=== PATIENT | female | born 1950 | race Caucasian/White ===

== ENCOUNTER → 2016-08-10 | Outpatient (CLI) | payer OTHER ==
[~2016-08-10] MED LIST: ADVIL200 MG PO; ASPIRIN EC81 MG PO; CENTRUM SILVER1 TAB PO; EFFEXOR XR75 MG PO; LASIX20 M1 PO; LIPITOR20 M1 PO; NASONEX NASAL S17 GM NOSE; NEXIUM40 MG PO; TOPROL XL25 MG PO; TYLENOL325 MG PO; VITAMIN D-32000 UNI1 PO
[2016-08-10 17:28] LABS: ALBUMIN 3.3 gm/dL (3.5-5.0); ANION GAP 11.9 (10.0-19.0); BLOOD UREA NITROGEN 23 mg/dL (6-24); CALCIUM 8.3 mg/dL (8.5-10.5); CHLORIDE 108 mMol/L (96-110); CO2 27 mMol/L (22-32); CREATININE 0.8 mg/dL (0.5-1.1); ESTIMATED GFR (MDRD EQUATION) > 60; PHOSPHORUS 2.1 mg/dL (2.5-4.9); POTASSIUM 3.9 mMol/L (3.7-5.1); SODIUM 143 mMol/L (135-145)
== END | disposition disaster alternative care site (69) ==
LOC: LCNC 17:16
PROVIDERS: Internal Medicine Interventional Cardiology
DX: R06.02 Shortness of breath (principal)

== ENCOUNTER → 2016-08-13 | Outpatient (CLI) | payer OTHER ==
[2016-08-13 15:38] LABS: BASOPHIL % 0.7 %; EOSINOPHIL # 0.2 K/uL (0.0-0.5); EOSINOPHIL % 3.8 %; HEMATOCRIT 37.1 % (33.0-46.0); HEMOGLOBIN 12.2 g/dL (10.0-15.0); IMMATURE GRANULOCYTE % 0.3 %; LYMPHOCYTE # 2.7 K/uL (0.8-4.0); LYMPHOCYTE % 44.7 %; MCHC 32.9 gm/dL (32.0-36.5); MCV 91.4 fl (83.0-98.0); MONOCYTE # 0.4 K/uL (0.0-1.0); MONOCYTE % 6.7 %; MPV 9.1 fl (9.4-12.4); NEUTROPHIL # (ANC) 2.6 K/uL (1.8-7.8); NEUTROPHIL % 43.8 %; NRBC % 0 /100WBC (0-0.00); PLATELET COUNT 270 K/uL (150-450); RBC 4.06 M/uL (3.50-5.50); RDW-CV 13.2 % (11.9-14.6)
== END | disposition disaster alternative care site (69) ==
LOC: LCNC 15:34
PROVIDERS: Internal Medicine Interventional Cardiology
DX: R06.02 Shortness of breath (principal)

== ENCOUNTER 2016-08-20 06:06 | Outpatient (CLI) | payer OTHER, MEDICARE ==
[~2016-08-20] VITALS: Ht 162.6 cm; Wt 89.1 kg
--- NOTE | ~2016-08-20 | CATH ---
Cardiac Diagnostic Report Demographics Patient Name GYPSY GRACIA Gender Female A Date of 1950 Age 66 year(s) Patient Number [id number] Date of Study 08/20/2016 Visit Number [id number] Room Number G63[address] [place] [id number] Ht 168 cm Wt 89.1 kg Referring Heena Christine MD Primary Physician Physician Performing Heena Christine MD Secondary Physician Physician Diagnostic Heena Christine MD Assisting Physician Physician Interventional Physician Ship Captain Physician Findings and Conclusions Diagnostic Findings and Conclusion nonobstructive CAD normal LV function Elevated LVEDP consistent with diastolic dysfunction Diagnostic Recommendations medical therapy Routine post perclose care Procedure Description The patient was brought to the diagnostic cardiac catheterization-EP laboratory in the fasting, non-sedated state. Informed consent was obtained in the written and verbal form after the risks and benefits were explained. The patient had no further questions and agreed to proceed. The planned puncture-incision site(s) were shaved and prepped with ChloraPrep and draped in the usual sterile manner. Conscious sedation, supplemental oxygen, and pain control medications were delivered by a registered nurse under physician guidance. Surface ECG rhythm, blood pressure measurement, and pulse oximetry were monitored throughout the procedure. Arterial access. The access site was infiltrated with lidocaine. The vessel was entered with the Seldinger technique. A sheath was advanced into the vessel and used for catheter placement. Venous access. The access site was infiltrated with lidocaine. The vessel was entered with the Seldinger technique. A sheath was advanced into the vessel and used for catheter placement. Selective left coronary angiography. A catheter was advanced into the left coronary vessel ostium under Fluoroscopic guidance. Contrast was injected by hand. Images were obtained in multiple projections. Selective right coronary angiography. A catheter was advanced into the right coronary vessel ostium under fluoroscopic guidance. Contrast was injected by hand. Images were obtained in multiple projections. Left heart catheterization with ventriculography. A catheter was advanced across the aortic valve to the left ventricle under fluoroscopic guidance. Resting hemodynamics were obtained. With the catheter at the left ventricular apex, contrast was injected. Images were obtained in RUGGIERO projections. Post-ventriculography LV pressure was obtained. The catheter was gradually withdrawn into the aorta with continuous pressure recording. Right heart catheterization. A Wentworth Shelly catheter was successfully advanced to the right atrium, right ventricle, pulmonary artery, and pulmonary artery wedge position under fluoroscopic guidance. Resting hemodynamics were obtained. Measurements included pressures, arterial and venous oxygen saturation samples, and cardiac output. The Wentworth was removed without difficulty. Arterial artery hemostasis was achieved. The patient was transferred to a regular nursing floor via cart accompanied by a nurse. The patient left the laboratory in stable condition. Diagnostic Cath Status: Elective Procedure Procedure Type Diagnostic procedure:Ventriculogram:, Left, Angiography:, Right and Left Heart Cath, Coronary Angios Indications: Fatigue and Shortness of breath w/exertion. The procedure was explained in detail to the patient. Risks, complications and alternative treatments were reviewed. Written consent was obtained. Medications Reviewed with Patient prior to Procedure. Angiographic Findings Dominance: Mixed Cardiac Arteries and Lesion Findings LMCA: Normal (0% Stenosis).medium wnl LAD: Normal (0% Stenosis).medium wnl Diag 1 small ok LCx: Normal (0% Stenosis).large codominant OM1 small ok RCA: Normal (0% Stenosis).medium wnl PDA small ok Procedure Data Procedure Date Date: 08/20/2016Start: 08:00 AMEnd: 08:49 AM Entry Locations - Retrograde Percutaneous access was performed through the Right Femoral artery (Primary location). A 6 Fr sheath was inserted. Hemostasis was successfully obtained using Perclose ProGlide (Minaya). Closure Comments: perclose deployed by ashlie . - Antegrade Percutaneous access was performed through the Right Femoral vein. A 7 Fr sheath was inserted. Closure Comments: pressure held by ashlie. Procedure Medications Order and Administration + + +-------+------+ !Time !Medication !Dosage !Route ! + + +-------+------+ !08/20/2016 07:53 AM !Fentanyl !25 mcg !I.V. ! + + +-------+------+ !08/20/2016 08:33 AM !Fentanyl !25 mcg !I.V. ! + + +-------+------+ Devices Used - A6 Fr. BS Angled Pigtail Diag. Catheterwas used for:LV Pressures. - A6 Fr. BS JL 4 Diag. Catheterwas used for:Left coronary angiography. - A6 Fr. BS JR 4 Diag. Catheterwas used for:Right coronary angiography. Contrast Material - Isovue 43343 ml Fluoroscopy Time: Diagnostic: 7:06 minutes. Total: 7:06 minutes. Fluoroscopy Dose: Diagnostic: 505 mGy. Total: 505 mGy. Estimated Blood Loss: 4 ml. Medical History Allergies - Other:(bactrim, trimethoprim). Risk Factors The patient risk factors include:physical activity, treated hypertension, family history of premature CAD, last creatinine: 0.8 mg/dl and creatinine clearance: 95.98 ml/min. Admission Data Admission Date: 08/20/2016 Admission Time: 06:06 AM Admit Source: Other Insurance Payors: Private health insurance. Admission Medications + +------+------+ + + + + !Medication !Dosage!Times !Last !Last !Administered !Comments ! ! ! !Per !Delivery !Delivery ! ! ! ! ! !Day !Date !Time ! ! ! + +------+------+ + + + + !Beta ! ! ! ! ! ! ! !Anastasia ! ! ! ! ! ! ! !(any) ! ! ! ! ! ! ! + +------+------+ + + + + !Aspirin ! ! ! ! ! ! ! !(any) ! ! ! ! ! ! ! + +------+------+ + + + + !Statin ! ! ! ! ! ! ! !(any) ! ! ! ! ! ! ! + +------+------+ + + + + Clinical Evaluation Leading to Procedure - The patient's CAD presentation was assessed as: Unstable angina. - The patient's anginal syndrome during the past two weeks was assessed as: Class II according to the [place] Cardiovascular [employer] Classification System (CCS). Anti-anginal medications were prescribed during the past two weeks. The medications are: Beta Blockers and Other. - The patient has been in a state of heart failure within the past two weeks. - The patient's heart failure status was assessed as NYHA Class I. VA Ventriculography Findings normal LV systolic function EF 55-60% elevated LVEDP LV function assessed as:Normal. Ejection Fraction - Method: LV gram. EF%: 55. - 10/20/2015 - Method: Radionucleotide. EF%: 65. LVA Segment Contractility 1 - Normal 3 - Mild 5 - Severe 7 - Dyskinesis hypokinesis hypokinesis 2 - 4 - Moderate 6 - Akinesis 8 - Aneurysm Hypokinesis hypokinesis Hemodynamics Condition: Rest O2 Consumption: Estimated: 183.59Heart Rate: 68 bpm Oxygen Saturation +--------+-----+----+ +----+ + !Location!pCO2 !pO2 !% Saturation !Hgb !O2 Content ! +--------+-----+----+ +----+ + !FA ! ! !97 !12.2! ! +--------+-----+----+ +----+ + !PCW ! ! !77.6 !12.2! ! +--------+-----+----+ +----+ + !SVC ! ! !65.1 !12.2! ! +--------+-----+----+ +----+ + !RA ! ! !67.2 !12.2! ! +--------+-----+----+ +----+ + !IVC ! ! !81.2 !12.2! ! +--------+-----+----+ +----+ + Pressures (mmHg) +-----+ + !Site !Pressure ! +-----+ + !RA !11/9 (8) ! +-----+ + !RV !38/0 ,8 ! +-----+ + !PCW ! (10) ! +-----+ + !PA !/ (18) ! +-----+ + !LV !139/2 ,17 ! +-----+ + !PCW ! (14) ! +-----+ + !LV !124/1 ,15 ! +-----+ + !PCW ! (13) ! +-----+ + !LV !140/2 ,17 ! +-----+ + !LV !146/2 ,18 ! +-----+ + !LV !134/3 ,21 ! +-----+ + !LV !134/4 ,20 ! +-----+ + !LV !133/3 ,19 ! +-----+ + !AO !133/63 (94) ! +-----+ + !LV !134/3 ,20 ! +-----+ + !AO !135/69 (96) ! +-----+ + Cardiac Output + + +------+ !Time !Cardiac Output (l/min) !Use ! + + +------+ !08/20/2016 08:28 AM !4.45 !True ! + + +------+ !08/20/2016 08:28 AM !4.45 !True ! + + +------+ !08/20/2016 08:29 AM !3.46 !False ! + + +------+ !08/20/2016 08:29 AM !4.52 !True ! + + +------+ !08/20/2016 08:30 AM !3.65 !True ! + + +------+ Cardiac Output +-------+ + + + !Method !CO (l/min) !CI (l/min/m2) !SV (ml) ! +-------+ + + + !Millie !3.71 !1.9 !54.35 ! +-------+ + + + !Thermal!4.2675 !2.1 !55.6 ! +-------+ + + + Valve Gradients and Areas + +--------+--------+--------+---------+ + + !Valve !Peak !Mean !Area !Index !Flow !Source ! + +--------+--------+--------+---------+ + + !Aortic !1 !0 ! ! !178.19 !Millie ! + +--------+--------+--------+---------+ + + !Aortic !1 !0 ! ! !204.97 !Thermal ! + +--------+--------+--------+---------+ + + Shunts Oxygen Values O2 Capacity 165.92 O2 Consumption 183.59 Flows (l/min) Qs 3.97 Qe 13.06 Vascular Resistance (dynes x sec x cm-5) + +-----+-----+----+----+---------+-------+ !CO method !TSVR !SVR !TPVR!PVR !TPVR/TSVR!PVR/SVR! + +-----+-----+----+----+---------+-------+ !Millie !25.77!23.74!4.72!1.26!0.18 !0.05 ! + +-----+-----+----+----+---------+-------+ !Thermal !22.41!20.64!4.1 !1.09!0.18 !0.05 ! + +-----+-----+----+----+---------+-------+ !Qp or Qs !24.09!22.18! ! ! ! ! + +-----+-----+----+----+---------+-------+ Discharge Data Discharge Date: 08/20/2016 Hospital Status: Outpatient Signatures dtt: Emmett Naik (cardio) dtd: 08/20/16 0800 Physician Self Edit
[~2016-08-20 06:06] MED LIST changes: -LASIX20 M1 PO
[2016-08-20] MEDS ORDERED: TOPROL XL25 MG PO (11:55)
[2016-08-20] MEDS ORDERED: LASIX20 M1 PO (11:55)
== END 2016-08-20 12:05 | disposition disaster alternative care site (69) ==
LOC: GPCU 06:06 → GCAT 06:06 → GPCU 06:07 → GPOC 08:00 → GCAT 12:05
PROC: B2151ZZ Fluoroscopy of Left Heart using Low Osmolar Contrast (ICD-10-PCS; principal; 2016-08-20)
PROC: 4A023N8 Measurement of Cardiac Sampling and Pressure, Bilateral, Percutaneous Approach (ICD-10-PCS; principal; 2016-08-20)
PROC: B2111ZZ Fluoroscopy of Multiple Coronary Arteries using Low Osmolar Contrast (ICD-10-PCS; principal; 2016-08-20)
DX: R06.02 Shortness of breath (principal); I49.3 Ventricular premature depolarization; M54.9 Dorsalgia, unspecified; G89.29 Other chronic pain; E78.5 Hyperlipidemia, unspecified; I10 Essential (primary) hypertension; R53.83 Other fatigue; E66.9 Obesity, unspecified; Z68.33 Body mass index [BMI] 33.0-33.9, adult; K21.9 Gastro-esophageal reflux disease without esophagitis; Z79.82 Long term (current) use of aspirin; Z79.899 Other long term (current) drug therapy; Z79.1 Long term (current) use of non-steroidal anti-inflammatories (NSAID); Z85.3 Personal history of malignant neoplasm of breast; Z82.49 Family history of ischemic heart disease and other diseases of the circulatory system; M48.00 Spinal stenosis, site unspecified; M19.90 Unspecified osteoarthritis, unspecified site; G62.9 Polyneuropathy, unspecified
CPT/HCPCS: C1760; J1644; J2001; J2250; J3010; J7030; J7060

== ENCOUNTER 2016-10-16 17:23 | Emergency (ER) | payer OTHER, MEDICARE ==
--- NOTE | ~2016-10-16 | ER ---
PATIENT'S NAME: BASIL BETANCUR [facility] AGE: 66 Y [address] ROOM: [place] [address] LOCATION: [facility] ADMIT DATE: 10/16/2016 ER/Outpatient Report DISCHARGE DATE: 10/16/2016 FAMILY PHYSICIAN: Yossi Marrero MD ATTENDING PHYSICIAN: Melecio Smith HISTORY OF PRESENT ILLNESS: A 66-year-old female who presents today with crush injury to the big toe of her left foot. The patient states that she was using hydraulic lift for her 's chair when it jammed and then it crushed her left foot great toe. She reports the pain as 6/10. Does not want anything for pain at this time. This happened 45 minutes ago. She had some bleeding from around the toe as well. No other complaints at this time. PAST MEDICAL HISTORY: Includes breast cancer, GERD, and hypertension. PAST SURGICAL HISTORY: Includes carpal tunnel, lumpectomy, hysterectomy, colonoscopies, bladder surgery, and heart cath. SOCIAL HISTORY: She does not smoke or use any drugs. She does drink occasional alcohol. REVIEW OF SYSTEMS: Reviewed by me and negative with the exception of those discussed in the HPI. PHYSICAL EXAMINATION: VITAL SIGNS: She weighs 89.3 kilos. Blood pressure is 166/72, heart rate 85, respiratory rate 16, temp is 97.3, and sats are 98% on room air. GENERAL: The patient is lying in stretcher without any acute distress. EXTREMITIES: She has no ankle tenderness. No midfoot tenderness. There is bleeding and she also has a subungual hematoma on her left great toe; although, not in any pain at this time. She has tenderness on palpation of that toe, but not in the midfoot just of the distal phalanx. No tenderness of the mid or proximal phalanx. EMERGENCY DEPARTMENT COURSE: An x-ray was done and on my read she looks like she has a distal tuft fracture of that left great toe, we will gunnar tape it to the next toe, I will give her some Percocet for pain, we updated her tetanus, and follow up as needed. IMPRESSION: Distal tuft fracture, left foot great toe. PATIENT'S NAME: BASIL BETANCUR [facility] AGE: 66 Y [address] ROOM: [place], [place] [address] LOCATION: [facility] ADMIT DATE: 10/16/2016 ER/Outpatient Report DISCHARGE DATE: 10/16/2016 FAMILY PHYSICIAN: Yossi Marrero MD ATTENDING PHYSICIAN: Melecio Smith MD GEETA LUDWIG/jae /[id number] d: 10/17/16 0159 t: 10/17/16 1822, OUTPATIENT REPORT
[~2016-10-16 17:23] MED LIST changes: +LASIX20 M1 PO
== END 2016-10-16 18:49 | disposition disaster alternative care site (69) ==
LOC: GACC 17:23
DX: S92.422A Displaced fracture of distal phalanx of left great toe, initial encounter for closed fracture (principal); I10 Essential (primary) hypertension; Z23 Encounter for immunization; K21.9 Gastro-esophageal reflux disease without esophagitis; Z79.82 Long term (current) use of aspirin; Z88.2 Allergy status to sulfonamides; Z79.899 Other long term (current) drug therapy; Z90.710 Acquired absence of both cervix and uterus; Z98.890 Other specified postprocedural states; W24.0XXA Contact with lifting devices, not elsewhere classified, initial encounter

== ENCOUNTER → 2017-01-26 | Outpatient (CLI) | payer OTHER ==
[2017-01-26 13:40] LABS: ALBUMIN 3.6 gm/dL (3.5-5.0); ANION GAP 10.7 (10.0-19.0); CALCIUM 8.7 mg/dL (8.5-10.5); CREATININE 0.9 mg/dL (0.5-1.1); MAGNESIUM 2.4 mg/dL (1.8-2.6); PHOSPHORUS 3.1 mg/dL (2.5-4.9); POTASSIUM 3.7 mMol/L (3.7-5.1)
== END ==
LOC: LCNC 13:19
PROVIDERS: Internal Medicine Interventional Cardiology
DX: R60.0 Localized edema (principal)